=== PATIENT | male | born 1995 | race Hispanic/Latino ===

== ENCOUNTER 2016-08-09 08:54 | Emergency (ER) | payer OTHER ==
[~2016-08-09] VITALS: Ht 157.5 cm; Wt 43.7 kg
[2016-08-09 11:16] VITALS: BP 128/84
== END 2016-08-09 11:37 | disposition home or self-care (01) ==
LOC: EDBD 08:54 → EME 08:54
DX: Z04.1 Encounter for examination and observation following transport accident (principal); G80.9 Cerebral palsy, unspecified; V49.50XA Passenger injured in collision with unspecified motor vehicles in traffic accident, initial encounter; Y92.411 Interstate highway as the place of occurrence of the external cause
CPT/HCPCS: 99281; 99283